=== PATIENT | male | born 1970 | race Caucasian/White ===

== ENCOUNTER 2017-04-05 07:13 | Emergency (ER) | payer OTHER | END 2017-04-05 09:31 | disposition home or self-care (01) | LOC: D.ER 07:13 | DX: S52.501A Unspecified fracture of the lower end of right radius, initial encounter for closed fracture (principal); W19.XXXA Unspecified fall, initial encounter; S52.601A Unspecified fracture of lower end of right ulna, initial encounter for closed fracture ==